=== PATIENT | male | born 1985 | race Caucasian/White ===

== ENCOUNTER 2016-12-02 16:43 | Emergency (ER) | payer SELFPAY ==
[~2016-12-02] VITALS: Ht 167.6 cm; Wt 94.3 kg
[2016-12-02 16:52] VITALS: BP 146/81
--- NOTE | 2016-12-02 16:55 | NUR ---
Patient to bed 08.
--- NOTE | 2016-12-02 17:00 | NUR ---
Nilo ma in [facility] - 12/02/16 at [address] De Luna evaluating patient at bedside.
[2016-12-02] MEDS ORDERED: NACL 0.9% 1,000 ML IV SCH (17:03)
[2016-12-02 17:04] VITALS: BP 146/81
[2016-12-02] MEDS ORDERED: AMPICILLIN/SULBACTAM 3 GM in NACL 0.9% 100 ML IV ONE (17:05)
[2016-12-02] MEDS ORDERED: KETOROLAC 30 MG/ML VIAL IVP ONE (17:05)
[2016-12-02] MEDS ORDERED: ONDANSETRON 4 MG/2 ML VIAL IVP ONE (17:05)
[2016-12-02] MEDS ORDERED: NACL 0.9% 1,000 ML IV ONE (17:05)
[2016-12-02] MEDS ORDERED: AMPICILLIN/SULBACTAM 3 GM VIAL ONE (17:21)
--- NOTE | 2016-12-02 17:25 | NUR ---
TK CARR. AWARE.
== END 2016-12-02 17:25 | disposition left against medical advice (07) ==
LOC: MED 16:43
DX: L03.115 Cellulitis of right lower limb (principal)

== ENCOUNTER 2017-08-23 01:55 | Emergency (ER) | payer SELFPAY ==
[~2017-08-23] VITALS: Ht 170.2 cm; Wt 95.3 kg
--- NOTE | 2017-08-23 01:55 | NUR ---
PT [facility], PREBOOK. TAKEN TO [facility]
[2017-08-23 01:59] VITALS: BP 127/102
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
--- NOTE | 2017-08-23 02:04 | NUR ---
Patient being evaluated by physician
--- NOTE | 2017-08-23 02:19 | NUR ---
PT SENT TO XRAY VIA W/C WITH [facility]RA AND RICHARD/, SHANTEL AT THIS TIME
[2017-08-23] MEDS ORDERED: ACETAMINOPHEN EXTRA STRENGTH 500 MG TAB ONE (02:42)
[2017-08-23] MEDS ORDERED: ACETAMINOPHEN EXTRA STRENGTH 500 MG TAB PO ONE (02:45)
[2017-08-23 02:57] VITALS: BP 120/97
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
== END 2017-08-23 02:59 ==
LOC: MED 01:55
DX: Z02.89 Encounter for other administrative examinations (principal); S16.1XXA Strain of muscle, fascia and tendon at neck level, initial encounter; X58.XXXA Exposure to other specified factors, initial encounter; Y93.89 Activity, other specified; Y92.89 Other specified places as the place of occurrence of the external cause; Y99.8 Other external cause status
CPT/HCPCS: 72050; 99284